=== PATIENT | female | born 1985 | race African-American/Black ===

== ENCOUNTER 2018-12-22 21:05 | Observation (INO) | payer MEDICAID ==
[~2018-12-22] VITALS: Ht 170.2 cm; Wt 98.0 kg
[2018-12-22 22:57] LABS: Urine Bacteria MOD /hpf (None Seen); Urine Blood TRACE /uL (Negative); Urine Mucus FEW (None Seen); Urine Specific Gravity 1.023 (1.001-1.035); Urine WBC 57 /hpf (0 - 5)
== END 2018-12-22 23:55 | disposition home or self-care (01) | DRG 566 ==
LOC: LDRP 21:05
PROVIDERS: ADMIT Specialist; ATTEND Specialist
DX: O23.43 Unspecified infection of urinary tract in pregnancy, third trimester (principal); O00.01 Abdominal pregnancy with intrauterine pregnancy; O26.853 Spotting complicating pregnancy, third trimester; O62.9 Abnormality of forces of labor, unspecified; Z3A.29 29 weeks gestation of pregnancy
CPT/HCPCS: 59025; 81001; 81002; 87210; G0378

== ENCOUNTER 2019-01-17 11:43 | Observation (INO) | payer MEDICAID ==
[2019-01-17] MEDS ORDERED: PREN-96 PO (12:36)
== END 2019-01-17 13:05 | disposition home or self-care (01) | DRG 563 ==
LOC: LDRP 11:43
PROVIDERS: ADMIT Specialist; ATTEND Specialist
DX: O60.03 Preterm labor without delivery, third trimester (principal); Z3A.33 33 weeks gestation of pregnancy
CPT/HCPCS: 59025; 76815; 81002; G0378

== ENCOUNTER 2019-01-22 17:15 | Observation (INO) | payer MEDICAID ==
[~2019-01-22 17:15] MED LIST: PREN-96 PO
== END 2019-01-22 20:00 | disposition home or self-care (01) | DRG 566 ==
LOC: LDRP 17:15
PROVIDERS: ADMIT Specialist; ATTEND Specialist
DX: O26.893 Other specified pregnancy related conditions, third trimester (principal); R10.2 Pelvic and perineal pain; Z3A.34 34 weeks gestation of pregnancy
CPT/HCPCS: 59025; 76815; 81002; G0378

== ENCOUNTER 2019-02-14 08:09 | Observation (INO) | payer MEDICAID | END 2019-02-14 08:50 | disposition home or self-care (01) | DRG 566 | LOC: LDRP 08:09 | PROVIDERS: ADMIT Obstetrics & Gynecology; ATTEND Obstetrics & Gynecology | DX: O62.9 Abnormality of forces of labor, unspecified (principal); O99.89 Other specified diseases and conditions complicating pregnancy, childbirth and the puerperium; M54.9 Dorsalgia, unspecified; Z3A.37 37 weeks gestation of pregnancy | CPT/HCPCS: 59025; 81002; G0378 ==

== ENCOUNTER 2019-02-15 15:32 | Observation (INO) | payer MEDICAID, OTHER | END 2019-02-15 17:40 | disposition home or self-care (01) | DRG 566 | LOC: EDUNIT# 15:32 → LDRP 15:32 | PROVIDERS: ADMIT Specialist; ATTEND Specialist | DX: O62.9 Abnormality of forces of labor, unspecified (principal); Z3A.37 37 weeks gestation of pregnancy | CPT/HCPCS: 59025; 76815; 81002; G0378 ==

== ENCOUNTER 2019-02-16 19:24 | Observation (INO) | payer MEDICAID | END 2019-02-16 21:19 | disposition home or self-care (01) | DRG 566 | LOC: LDRP 19:24 | PROVIDERS: ADMIT Specialist; ATTEND Specialist | DX: O42.92 Full-term premature rupture of membranes, unspecified as to length of time between rupture and onset of labor (principal); O26.893 Other specified pregnancy related conditions, third trimester; N89.8 Other specified noninflammatory disorders of vagina; O62.9 Abnormality of forces of labor, unspecified; Z3A.37 37 weeks gestation of pregnancy | CPT/HCPCS: 59025; 76815; 81002; G0378 ==

== ENCOUNTER 2019-05-06 07:27 | Day surgery (SDC) | payer MEDICAID ==
[~2019-05-06] VITALS: Ht 170.2 cm; Wt 89.8 kg
[2019-05-06] MEDS ORDERED: ceFAZolin 1GM/50ML 50 ML IV ONE (08:15)
[2019-05-06] MEDS ORDERED: DexAMETHasone SOD PHOS 10MG/1ML VIAL INJ IV ONE (08:46)
[2019-05-06] MEDS ORDERED: ROCURONIUM 10MG/ML 10ML VIAL IV ONE (08:46)
[2019-05-06] MEDS ORDERED: MEPERIDINE HCL (25 MG/ML) 1ML VIAL ONE (09:03)
[2019-05-06] MEDS ORDERED: PROPOFOL 10 MG/ML 20 ML IV ONE ×2 (09:03→10:15)
[2019-05-06] MEDS ORDERED: MIDAZOLAM HCL 1MG/1ML-2 ML VIAL ONE (09:03)
[2019-05-06] MEDS ORDERED: NEOSTIGMINE 1 MG/ML INJ (10mg/10ML VIAL) ONE (10:15)
[2019-05-06] MEDS ORDERED: GLYCOPYRROLATE 0.2 MG/ML 1ML VIAL ONE (10:15)
[2019-05-06] MEDS ORDERED: ONDANSETRON HCL 4 MG/2 ML VIAL IV PRN (10:30)
[2019-05-06] MEDS ORDERED: HYDROmorphone HCL 2 MG/ML VL ONE (10:37)
[2019-05-06] MEDS: HYDROmorphone HCL 2 MG/ML VL IV PRN ×3 (10:48→11:10)
[2019-05-06 10:58] VITALS: BP 169/91
== END 2019-05-06 11:32 | disposition home or self-care (01) ==
LOC: SUR 07:27
PROVIDERS: ATTEND Specialist
DX: Z30.2 Encounter for sterilization (principal); Z64.1 Problems related to multiparity; Z98.890 Other specified postprocedural states
CPT/HCPCS: 58671; 86850; 86900; 86901; J0690; J1100; J1170; J2175; J2250; J2704